=== PATIENT | male | born 2000 | race Hispanic/Latino ===

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

== ENCOUNTER 2021-01-19 02:47 | Emergency (ER) | payer OTHER ==
[~2021-01-19] VITALS: Ht 172.7 cm; Wt 79.0 kg
[2021-01-19 03:26] LABS: HEMATOCRIT 45.5 % (39.0-50.0); HEMOGLOBIN 15.6 g/dl (14.0-18.0); IMMATURE GRANULOCYTES 0.6 % (0.0-5.0); MEAN CELL VOLUME 91.5 fL CALC (80.0-100.0); MEAN CORPUSCULAR HGB 31.4 pG CALC (26.0-32.0); MEAN CORPUSCULAR HGB CONC 34.3 g/dL CAL (32.0-36.0); NEUT# 3.31 thou/uL (1.82-7.42); RED BLOOD COUNT 4.97 mill/uL (4.70-6.10); RED CELL DISTRI WIDTH 12.4 % (11.5-15.5)
[2021-01-19 03:38] LABS: ALBUMIN 4.5 g/dL (3.2-5.0); ALKALINE PHOSPHATASE 77 u/l (38-126); ANION GAP 12 (6-22 (CALC)); BILIRUBIN, TOTAL 0.5 mg/dL (0.0-1.4); BUN 13 mg/dL (8-21); BUN/CREATININE RATIO 19 (12-20 (CALC)); CARBON DIOXIDE 26 mmol/l (22-30); CHLORIDE 104 mmol/l (95-108); CREATININE 0.7 mg/dL (0.7-1.3); GFR > 60 ML/MIN (>=60 (CALC)); GFR FOR AFR.AMER. > 60 ML/MIN (>=60 (CALC)); POTASSIUM 4.3 mmol/l (3.5-5.1); SGOT/AST 25 u/l (17-59); SODIUM 137 mmol/l (137-146); TOTAL PROTEIN 7.5 g/dL (6.3-8.2)
[2021-01-19 03:50] LABS: MYOGLOBIN 27 ng/mL (0 - 121)
[2021-01-19] MEDS ORDERED: NAPROXEN500 MG PO (03:55)
[2021-01-19 04:00] VITALS: BP 123/59
== END 2021-01-19 04:00 | disposition home or self-care (01) | DRG 313 ==
LOC: ED 02:47
PROVIDERS: Emergency Medicine
DX: R07.89 Other chest pain (principal); Z20.822 Contact with and (suspected) exposure to COVID-19

== ENCOUNTER 2021-02-07 01:04 | Emergency (ER) | payer OTHER ==
[~2021-02-07] VITALS: Ht 172.7 cm; Wt 79.0 kg
[~2021-02-07 01:04] MED LIST changes: +NAPROXEN500 MG PO
[2021-02-07 02:20] VITALS: BP 111/70
== END 2021-02-07 02:23 | disposition home or self-care (01) | DRG 605 ==
LOC: ED 01:04
DX: S90.111A Contusion of right great toe without damage to nail, initial encounter (principal); W20.8XXA Other cause of strike by thrown, projected or falling object, initial encounter; Y93.89 Activity, other specified; Y92.89 Other specified places as the place of occurrence of the external cause; Y99.0 Civilian activity done for income or pay

== ENCOUNTER 2023-05-01 12:55 | Emergency (ER) | payer OTHER ==
[~2023-05-01] VITALS: Ht 172.7 cm; Wt 88.0 kg
[2023-05-01] MEDS ORDERED: METHOCARBAMOL500 MG PO (16:06)
[2023-05-01] MEDS ORDERED: NAPROXEN500 MG PO (16:06)
[2023-05-01 16:07] VITALS: BP 146/92
== END 2023-05-01 16:13 | disposition home or self-care (01) | DRG 563 ==
LOC: ED 12:55
DX: S43.401A Unspecified sprain of right shoulder joint, initial encounter (principal); S16.1XXA Strain of muscle, fascia and tendon at neck level, initial encounter; V43.52XA Car driver injured in collision with other type car in traffic accident, initial encounter